=== PATIENT | male | born 1950 | race Caucasian/White ===

== ENCOUNTER 2016-06-22 08:41 | Outpatient (CLI) | payer MEDICARE, OTHER | END 2016-06-22 08:42 | disposition home or self-care (01) | DX: E78.5 Hyperlipidemia, unspecified (principal); R97.20 Elevated prostate specific antigen [PSA]; E11.9 Type 2 diabetes mellitus without complications; I10 Essential (primary) hypertension ==

== ENCOUNTER 2016-07-10 11:20 | Outpatient (CLI) | payer MEDICARE, OTHER | END 2016-07-10 11:21 | disposition home or self-care (01) | DX: R97.20 Elevated prostate specific antigen [PSA] (principal) ==

== ENCOUNTER 2016-08-08 10:49 | Day surgery (SDC) | payer MEDICARE, OTHER ==
[2016-08-08] MEDS ORDERED: LACTATED RINGERS 1,000 ML IV ONE ×2 (11:13→13:11)
[2016-08-08] MEDS ORDERED: fentaNYL 250 MCG/5 ML VIAL IVP ONE (13:00)
[2016-08-08] MEDS ORDERED: MIDAZOLAM 2 MG/2 ML VIAL IVP ONE (13:00)
== END 2016-08-08 10:50 | disposition home or self-care (01) ==
PROC: 0DJD8ZZ Inspection of Lower Intestinal Tract, Via Natural or Artificial Opening Endoscopic (ICD-10-PCS; principal; 2016-08-08 12:00)
DX: Z12.11 Encounter for screening for malignant neoplasm of colon (principal); K57.30 Diverticulosis of large intestine without perforation or abscess without bleeding; K64.8 Other hemorrhoids; Z86.010 Personal history of colon polyps; E11.9 Type 2 diabetes mellitus without complications; R12 Heartburn
CPT/HCPCS: G0105; J3010; J7120

== ENCOUNTER 2016-08-17 11:34 | Outpatient (CLI) | payer MEDICARE, OTHER | END 2016-08-17 11:35 | disposition home or self-care (01) | DX: Z00.00 Encounter for general adult medical examination without abnormal findings (principal) ==

== ENCOUNTER 2016-10-16 14:53 | Outpatient (CLI) | payer MEDICARE, OTHER | END 2016-10-16 14:54 | disposition home or self-care (01) | DX: I10 Essential (primary) hypertension (principal); E11.9 Type 2 diabetes mellitus without complications ==

== ENCOUNTER 2017-02-07 07:35 | Outpatient (CLI) | payer MEDICARE, OTHER ==
[2017-02-07 14:26] LABS: ALBUMIN/GLOBULIN RATIO 1.9 (1.0-2.2); BILIRUBIN,TOTAL 0.5 mg/dL (0.2-1.0); BUN - BLOOD UREA NITROGEN 24 mg/dL (6-20); CALCIUM 9.7 mg/dL (8.5-10.3); CARBON DIOXIDE - CO2 29 mmol/L (21-32); CHLORIDE 104 mmol/L (101-111); CHOL/HDL RATIO 2.9 (<5.0); CHOLESTEROL 197 mg/dL; CREATININE 0.8 mg/dL (0.6-1.2); GFR - MDRD 96 (>89); GLUCOSE 108 mg/dL (70-100); HDL CHOLESTEROL 69 mg/dL; POTASSIUM 4.4 mmol/L (3.5-5.0); SODIUM 138 mmol/L (135-145); TOTAL PROTEIN 6.6 g/dL (6.7-8.2); TRIGLYCERIDES 35 mg/dL
[2017-02-07 14:54] LABS: LDL CHOLESTEROL,DIRECT 119 mg/dL
[2017-02-07 14:58] LABS: HEMOGLOBIN A1C 0.52 g/dL
== END 2017-02-07 07:36 | disposition home or self-care (01) ==
LOC: LAB.WCP 07:35
PROVIDERS: ATTEND Family Medicine
DX: E78.5 Hyperlipidemia, unspecified (principal); E11.9 Type 2 diabetes mellitus without complications; I10 Essential (primary) hypertension
CPT/HCPCS: 36415; 80053; 80061; 83036

== ENCOUNTER 2017-05-25 07:11 | Outpatient (CLI) | payer MEDICARE, OTHER ==
[2017-05-25 13:46] LABS: HEMOGLOBIN A1C 0.51 g/dL
== END 2017-05-25 07:12 | disposition home or self-care (01) ==
LOC: LAB.WCP 07:11
PROVIDERS: ATTEND Family Medicine
DX: E11.9 Type 2 diabetes mellitus without complications (principal)
CPT/HCPCS: 36415; 83036

== ENCOUNTER 2017-05-31 08:00 | Outpatient (CLI) | payer MEDICARE, OTHER ==
[2017-05-31 15:24] LABS: BASOPHILS # (AUTO) 0.1 10^3/uL (0.0-0.1); BASOPHILS % (AUTO) 1.2 %; EOSINOPHILS # (AUTO) 0.2 10^3/uL (0.0-0.7); EOSINOPHILS % (AUTO) 3.4 %; HGB - HEMOGLOBIN 13.2 g/dL (14.0-18.0); LYMPHOCYTES # (AUTO) 1.4 10^3/uL (1.5-3.5); LYMPHOCYTES % (AUTO) 24.4 %; MEAN CORPUSCULAR HEMOGLOBIN 32.6 pg (27.0-31.0); MEAN CORPUSCULAR HGB CONC 33.7 g/dL (32.0-36.0); MEAN CORPUSCULAR VOLUME 96.8 fL (80.0-94.0); MEAN PLATELET VOLUME 8.1 fL (7.4-11.4); MONOCYTES # (AUTO) 0.5 10^3/uL (0.0-1.0); MONOCYTES % (AUTO) 9.9 %; NEUTROPHILS # (AUTO) 3.4 10^3/uL (1.5-6.6); NEUTROPHILS % (AUTO) 61.1 %; PLT - PLATELET COUNT 217 10^3/uL (130-450); RED BLOOD COUNT 4.04 10^6/uL (4.70-6.10); RED CELL DISTRIBUTION WIDTH 12.9 % (12.0-15.0); WHITE BLOOD COUNT 5.6 x10^3/uL (4.8-10.8)
[2017-05-31 15:29] LABS: ALBUMIN 4.5 g/dL (3.2-5.5); ALBUMIN/GLOBULIN RATIO 1.7 (1.0-2.2); BILIRUBIN,TOTAL 0.5 mg/dL (0.2-1.0); CREATININE 0.7 mg/dL (0.6-1.2); TOTAL PROTEIN 7.2 g/dL (6.7-8.2)
== END 2017-05-31 08:01 | disposition home or self-care (01) ==
LOC: LAB.WCP 08:00
PROVIDERS: ATTEND Family Medicine
DX: R10.9 Unspecified abdominal pain (principal)
CPT/HCPCS: 36415; 80053; 82150; 83690; 85025

== ENCOUNTER 2017-06-06 08:29 | Outpatient (CLI) | payer MEDICARE, OTHER ==
--- NOTE | 2017-06-07 11:22 | Ultrasound Report ---
DATE OF SERVICE: 06/06/2017 LIMITED RIGHT UPPER QUADRANT ABDOMEN ULTRASOUND: 06/06/2017 COMPARISON: None. INDICATION: Abdominal pain. TECHNIQUE: Sonographic evaluation of the right upper quadrant was performed. FINDINGS: The liver appears normal in size, contour and echogenicity. No masses are seen. There is no ascites. Portal venous flow was directed toward the liver. The gallbladder appears unremarkable without stones, wall thickening, or adjacent fluid. The common duct is nondilated measuring 4 mm. The right kidney measures 11.1 cm in length. There is a prominent column of Tay. The kidney appears otherwise unremarkable. IMPRESSION: ESSENTIALLY NEGATIVE RIGHT UPPER QUADRANT ULTRASOUND. TD: 06/06/2017 10:33 BETHANY
== END 2017-06-06 08:30 | disposition home or self-care (01) ==
LOC: DI 08:29
PROVIDERS: ATTEND Family Medicine
DX: R10.9 Unspecified abdominal pain (principal)
CPT/HCPCS: 76705

== ENCOUNTER 2017-06-18 12:04 | Outpatient (CLI) | payer MEDICARE, OTHER ==
[2017-06-18] MEDS ORDERED: SINCALIDE 5 MCG VIAL ONE (13:13)
--- NOTE | 2017-06-18 17:17 | Nuclear Medicine Report ---
EXAM: HEPATOBILIARY SCAN WITH CCK/KINEVAC ADMINISTRATION EXAM DATE: 06/18/2017 02:54 PM. CLINICAL HISTORY: ABDOMINAL PAIN. COMPARISON: Abdominal ultrasound 06/06/2017. TECHNIQUE: Following the intravenous administration of 5.3 mCi of Tc99m Mebrofenin, a hepatobiliary s can was done centered on the liver and gallbladder in multiple sequential images and projections. Following the intravenous administration of 1.55 mcg of CCK/ Kinevac over the course of approximately 60 minutes, dynamic imaging was done and the gallbladder ejection fraction was calculated. FINDINGS: Normal extraction of tracer from the blood pool indicating normal hepatocellular function. The liver size and shape is grossly within normal limits. Appearance of tracer in the biliary tree as early as 5 minutes, within normal limits. Appearance of tracer in the gallbladder as early as 20 minutes, within normal limits, with good progr ession of filling throughout the remainder of the initial hour. Appearance of tracer in the small bowel as early as 5 minutes, within normal limits. With CCK administration, the gallbladder demonstrates an effective contraction. The gallbladder eject ion fraction is calculated to be 79%, well above the lower limit of normal of 38% for a 60-minute inj ection. No evidence of enteric reflux into the stomach. No significant collection of tracer remaining in the common bile duct by the end of the study. IMPRESSION: 1. No scintigraphic evidence of acute cholecystitis. 2. Common bile duct is patent. 3. Gallbladder ejection fraction is in the normal range. VERONICA Referring Provider Line: [phone] SITE ID: [id number]
== END 2017-06-18 12:05 | disposition home or self-care (01) ==
LOC: DI 12:04
PROVIDERS: ATTEND Family Medicine
DX: R10.9 Unspecified abdominal pain (principal)
CPT/HCPCS: 78227; A9537

== ENCOUNTER 2017-06-20 09:00 | Outpatient (CLI) | payer MEDICARE, OTHER ==
[2017-06-20 13:07] LABS: AMYLASE 65 U/L (28-100); LIPASE 25 U/L (22-51)
== END 2017-06-20 09:01 | disposition home or self-care (01) ==
LOC: LAB.WCP 09:00
PROVIDERS: ATTEND Family Medicine
DX: R10.9 Unspecified abdominal pain (principal)
CPT/HCPCS: 36415; 82150; 83690

== ENCOUNTER 2017-07-12 07:58 | Outpatient (CLI) | payer MEDICARE ==
[2017-07-12 13:51] LABS: PSA FREE 1.21 ng/mL (0.16-2.81)
[2017-07-12 13:52] LABS: PSA TOTAL 3.09 ng/mL (0.000-2.000)
== END 2017-07-12 07:59 | disposition home or self-care (01) ==
LOC: LAB.WCP 07:58
PROVIDERS: ATTEND Family Medicine
DX: Z12.5 Encounter for screening for malignant neoplasm of prostate (principal)
CPT/HCPCS: 36415; 84154

== ENCOUNTER 2017-11-01 08:00 | Outpatient (CLI) | payer MEDICARE, OTHER ==
[2017-11-01 12:55] LABS: ALBUMIN 4.4 g/dL (3.2-5.5); ALBUMIN/GLOBULIN RATIO 1.6 (1.0-2.2); BILIRUBIN,TOTAL 0.8 mg/dL (0.2-1.0); CALCIUM 9.7 mg/dL (8.5-10.3); CREATININE 0.9 mg/dL (0.6-1.2); TOTAL PROTEIN 7.2 g/dL (6.7-8.2)
[2017-11-01 13:05] LABS: HB2 TOTAL 14.9 g/dL; HEMOGLOBIN A1C 0.57 g/dL; HEMOGLOBIN A1C % 5.7 % (4.6-6.2)
== END 2017-11-01 08:01 ==
LOC: LAB.WCP 08:00
PROVIDERS: ATTEND Family Medicine
DX: E11.9 Type 2 diabetes mellitus without complications (principal); I10 Essential (primary) hypertension
CPT/HCPCS: 36415; 80053; 83036

== ENCOUNTER 2018-01-09 08:00 | Outpatient (CLI) | payer MEDICARE, OTHER ==
[2018-01-09 13:36] LABS: BASOPHILS # (AUTO) 0.1 10^3/uL (0.0-0.1); BASOPHILS % (AUTO) 1.3 %; EOSINOPHILS # (AUTO) 0.3 10^3/uL (0.0-0.7); EOSINOPHILS % (AUTO) 6.1 %; HGB - HEMOGLOBIN 13.1 g/dL (14.0-18.0); LYMPHOCYTES # (AUTO) 1.1 10^3/uL (1.5-3.5); LYMPHOCYTES % (AUTO) 26.4 %; MEAN CORPUSCULAR HEMOGLOBIN 33.6 pg (27.0-31.0); MEAN CORPUSCULAR HGB CONC 35.1 g/dL (32.0-36.0); MEAN CORPUSCULAR VOLUME 95.8 fL (80.0-94.0); MEAN PLATELET VOLUME 7.7 fL (7.4-11.4); MONOCYTES # (AUTO) 0.4 10^3/uL (0.0-1.0); MONOCYTES % (AUTO) 9.4 %; NEUTROPHILS # (AUTO) 2.4 10^3/uL (1.5-6.6); NEUTROPHILS % (AUTO) 56.8 %; PLT - PLATELET COUNT 214 10^3/uL (130-450); RED BLOOD COUNT 3.89 10^6/uL (4.70-6.10); RED CELL DISTRIBUTION WIDTH 12.4 % (12.0-15.0); WHITE BLOOD COUNT 4.3 x10^3/uL (4.8-10.8)
[2018-01-09 13:50] LABS: ALBUMIN 4.2 g/dL (3.2-5.5); ALBUMIN/GLOBULIN RATIO 1.7 (1.0-2.2); ALKALINE PHOSPHATASE 63 IU/L (42-121); ALT ALANINE AMINOTRANSFERASE 28 IU/L (10-60); AST ASPARTATE AMINOTRANSFERASE 30 IU/L (10-42); BILIRUBIN,TOTAL 0.7 mg/dL (0.2-1.0); BUN - BLOOD UREA NITROGEN 14 mg/dL (6-20); CALCIUM 9.8 mg/dL (8.5-10.3); CARBON DIOXIDE - CO2 30 mmol/L (21-32); CHLORIDE 99 mmol/L (101-111); CREATININE 0.8 mg/dL (0.6-1.2); GFR - MDRD 96 (>89); GLUCOSE 110 mg/dL (70-100); SODIUM 136 mmol/L (135-145); TOTAL PROTEIN 6.7 g/dL (6.7-8.2)
[2018-01-09 14:07] LABS: CRP - C-REACTIVE PROTEIN < 1.0 mg/dL (0-1.0)
== END 2018-01-09 08:01 | disposition home or self-care (01) ==
LOC: LAB.WCP 08:00
PROVIDERS: ATTEND Family Medicine
DX: L25.9 Unspecified contact dermatitis, unspecified cause (principal); I10 Essential (primary) hypertension
CPT/HCPCS: 36415; 80053; 85025; 85651; 86140

== ENCOUNTER 2018-01-31 08:21 | Outpatient (CLI) | payer MEDICARE, OTHER ==
[2018-01-31 13:27] LABS: BASOPHILS # (AUTO) 0.1 10^3/uL (0.0-0.1); BASOPHILS % (AUTO) 0.9 %; EOSINOPHILS # (AUTO) 0.2 10^3/uL (0.0-0.7); EOSINOPHILS % (AUTO) 3.5 %; HGB - HEMOGLOBIN 13.5 g/dL (14.0-18.0); LYMPHOCYTES # (AUTO) 1.3 10^3/uL (1.5-3.5); LYMPHOCYTES % (AUTO) 22.7 %; MEAN CORPUSCULAR HEMOGLOBIN 33.4 pg (27.0-31.0); MEAN CORPUSCULAR HGB CONC 34.3 g/dL (32.0-36.0); MEAN CORPUSCULAR VOLUME 97.3 fL (80.0-94.0); MEAN PLATELET VOLUME 8.4 fL (7.4-11.4); MEAN RETIC VALUE 122.8; MONOCYTES # (AUTO) 0.4 10^3/uL (0.0-1.0); MONOCYTES % (AUTO) 7.8 %; NEUTROPHILS # (AUTO) 3.6 10^3/uL (1.5-6.6); NEUTROPHILS % (AUTO) 65.1 %; PLT - PLATELET COUNT 211 10^3/uL (130-450); RED BLOOD COUNT 4.06 10^6/uL (4.70-6.10); RED CELL DISTRIBUTION WIDTH 12.6 % (12.0-15.0); WHITE BLOOD COUNT 5.5 x10^3/uL (4.8-10.8)
[2018-01-31 14:06] LABS: FERRITIN 48.6 ng/mL (23.9-336.2)
[2018-01-31 14:10] LABS: FOLATE 11.99 ng/mL (5.90 - >24.8)
[2018-01-31 14:28] LABS: % IRON SATURATION 28 % (20-50); IRON 104 ug/dL (45-182); TOTAL IRON BINDING CAPACITY 368 ug/dL (250-450); TRANSFERRIN 263 mg/dL (180-329)
== END 2018-01-31 08:22 ==
LOC: LAB.WCP 08:21
PROVIDERS: ATTEND Family Medicine
DX: D64.9 Anemia, unspecified (principal)
CPT/HCPCS: 36415; 82607; 82728; 82746; 83540; 84466; 85025; 85044

== ENCOUNTER 2019-11-12 10:33 | Outpatient (CLI) | payer MEDICARE ==
--- NOTE | 2019-11-12 14:58 | CARDIAC PROCEDURE NOTE ---
DATE OF SERVICE: 11/12/2019 Physician: Rachel Eddy MD, [facility] INDICATION: Atypical chest pain. CARDIAC RISK FACTORS 1. Male gender. 2. Advanced age. 3. Hypertension history, 4. Elevated cholesterol history. 5. Family history of heart disease. DESCRIPTION OF PROCEDURE: After signing informed consent, patient underwent a Jose-protocol treadmill stress test. No cardiac imaging was ordered with this test. RESTING HEART RATE: 71. PEAK HEART RATE: 136 (90% predicted maximum heart rate for age). RESTING BLOOD PRESSURE: 136/82. PEAK BLOOD PRESSURE: 158/60. Patient exercised for 4 minutes and 40 seconds on a Jose-protocol treadmill. He achieved a peak heart rate of 136 (90% PMHR) and 6.6 METS. Patient had mild shortness of breath and reported his perceived exertion at 15/20 at peak on the Sanchez scale at peak. Patient had no chest pain with exercise. Oxygen saturation was 92-98% on room air throughout the test. RESTING EKG: Normal sinus rhythm, left IVCD, left anterior fascicular block, early R/S transition, flat/biphasic T-wave in lead aVL only. EKG AT PEAK: No ST segment or T-wave changes. SUMMARY 1. Abnormal resting EKG. 2. Fair to good exercise tolerance. 3. No changes by EKG criteria occur during his exercise at an adequate level of stress achieved. 4. No imaging was ordered with this test. 5. This patient's cardiac risk based on all the above: Low-Moderate. cc:Baltazar Juarez DO TD: 11/12/2019 14:15 [facility]
== END 2019-11-12 10:34 | disposition home or self-care (01) ==
LOC: DI 10:33
PROVIDERS: ATTEND Family Medicine
DX: R94.31 Abnormal electrocardiogram [ECG] [EKG] (principal); I10 Essential (primary) hypertension; Z82.49 Family history of ischemic heart disease and other diseases of the circulatory system
CPT/HCPCS: 93017

== ENCOUNTER 2021-11-11 09:41 | Outpatient (CLI) | payer MEDICARE ==
--- NOTE | 2021-11-11 11:28 | XRAY Report ---
PROCEDURE: Shoulder 3 View LT INDICATIONS: PAIN IN LEFT SHOULDER TECHNIQUE: 3 views of the shoulder were acquired. COMPARISON: None. FINDINGS: Bones: No fractures or dislocations. Moderate acromioclavicular joint and glenohumeral joint osteoar thritic changes are seen. No suspicious bony lesions. Visualized ribs appear intact. Soft tissues: No suspicious soft tissue calcifications. IMPRESSION: Moderate left shoulder joint osteoarthritis. No fracture or dislocation. No gross soft t issue abnormality. Reviewed by: Vikas Dawson MD on 11/11/2021 11:27 AM PDT Approved by: Vikas Dawson MD on 11/11/2021 11:27 AM PDT Station ID: [id number]
--- NOTE | 2021-11-11 11:57 | XRAY Report ---
PROCEDURE: Cervical Spine Complete INDICATIONS: PAIN IN LEFT SHOULDER TECHNIQUE: 6 views of the cervical spine acquired. COMPARISON: None. FINDINGS: Bones: No fractures or dislocations to the T1 level. Oblique images demonstrate no significant bony foraminal stenoses. Moderate C6-7 C7 degenerative disc disease. Mild C2-C3, C3-C4, C4-C5, C5-C6 and C7-T1 degenerative disc disease. Mild facet hypertrophy noted throughout the cervical spine. Mild jeanine ateral CC 3-C4, C4-C5 and C5-C6 uncovertebral hypertrophy. Soft tissues: No prevertebral soft tissue swelling. IMPRESSION: 1. Multilevel degenerative disc disease. 2. Multilevel facet and uncovertebral arthropathy. 3. No fracture. No acute osseous lesion. If there is continued clinical concern for pathology, then M RI should be considered for further evaluation.. Reviewed by: Magaly Morales MD, PhD on 11/11/2021 11:55 AM PDT Approved by: Magaly Morales MD, PhD on 11/11/2021 11:55 AM PDT Station ID: [id number]
== END 2021-11-11 09:42 | disposition home or self-care (01) ==
LOC: DI.N 09:41
PROVIDERS: ATTEND Family Medicine
DX: M47.812 Spondylosis without myelopathy or radiculopathy, cervical region (principal); M50.31 Other cervical disc degeneration, high cervical region; M19.012 Primary osteoarthritis, left shoulder

== ENCOUNTER 2022-08-16 19:06 | Outpatient (CLI) | payer MEDICARE ==
--- NOTE | 2022-08-17 10:16 | XRAY Report ---
PROCEDURE: Abdomen Acute INDICATIONS: UNSPECIFIED ABDOMINAL PAIN TECHNIQUE: One view chest and two views of the abdomen were acquired. COMPARISON: None FINDINGS: Surgical changes and devices: None. Chest: Lungs are clear. Heart size is normal. No pleural effusions. No pneumoperitoneum. Abdomen: Bowel gas pattern is normal. No suspicious calcifications. Visualized solid organ contour s appear normal. Bones: No suspicious bony lesions. Convex right scoliosis of the lumbar spine. IMPRESSION: No acute abnormality. Reviewed by: Yony Nelson on 08/17/2022 10:15 AM PDT Approved by: Yony Nelson on 08/17/2022 10:15 AM PDT Station ID: [id number]
--- NOTE | 2022-08-17 10:21 | XRAY Report ---
PROCEDURE: Thoracic Spine 2 View INDICATIONS: UNSPECIFIED ABDOMINAL PAIN, THORACIC MUSCLE SPASM TECHNIQUE: 3 views of the thoracic spine were acquired. COMPARISON: None. FINDINGS: Bones: No fractures or dislocations. No suspicious bony lesions. 12 pairs of ribs are noted, and a ppear intact where visualized. Soft tissues: No paravertebral stripe thickening. IMPRESSION: No evidence of acute bony abnormality of the thoracic spine. Reviewed by: Guru Kenney MD on 08/17/2022 10:20 AM PDT Approved by: Guru Kenney MD on 08/17/2022 10:20 AM PDT Station ID: [id number]
== END 2022-08-16 19:07 | disposition home or self-care (01) ==
LOC: DI 19:06
PROVIDERS: ATTEND Family Medicine
DX: R10.9 Unspecified abdominal pain (principal); M62.830 Muscle spasm of back

== ENCOUNTER 2022-10-02 12:30 | Outpatient (CLI) | payer MEDICARE | END 2022-10-02 12:45 | disposition home or self-care (01) | LOC: LAB.N 12:30 | PROVIDERS: ATTEND Physician Assistant Medical | DX: Z53.9 Procedure and treatment not carried out, unspecified reason (principal) | CPT/HCPCS: 36415; 80053; 83880; 85025 ==

== ENCOUNTER 2022-10-02 13:54 | Emergency (ER) | payer MEDICARE ==
--- NOTE | 2022-10-02 14:31 | ED Physician Documentation ---
History of Present Illness - Stated complaint Stated Complaint: SENT BY PCP - Chief complaint Chief Complaint: General - History obtained from History obtained from: Patient, Family - History of Present Illness Pain level max: 0 Pain level now: 0 - Additonal information Additional information: 72-year-old male presents to the emergency department complaining of pain and swelling to the bilateral buttocks x2 weeks. He states that this started after doing sitz bath for a hemorrhoid. He states he has also noticed swelling to his scrotum and penis that started over the past 1.5 days. He went to the walk-in clinic and was sent here for evaluation. He denies any chest pain or shortness of breath to me. No fevers. No chills. No coughing. Does not have any history of heart failure. Review of Systems Constitutional: denies: Fever, Chills GI: denies: Nausea, Vomiting : denies: Dysuria, Frequency, Hesitancy Skin: denies: Rash Musculoskeletal: denies: Neck pain, Back pain Neurologic: denies: Headache PD PAST MEDICAL HISTORY - Past Medical History Cardiovascular: Hypertension, High cholesterol Respiratory: Asthma Endocrine/Autoimmune: Type 2 diabetes GI: GERD : Benign prostate hypertrophy Psych: None Musculoskeletal: None Derm: None - Past Surgical History General: Colonoscopy, EGD - Present Medications Home Medications: Ambulatory Orders Medication Instructions Recorded Confirmed Albuterol Sulf [Ventolin Hfa 1 puffs INH Q4HR PRN 08/08/16 08/08/16 Inhaler] Ascorbic Acid [Vitamin C] 1,000 mg PO BID 08/08/16 08/08/16 Aspirin 81 mg PO DAILY 08/08/16 08/08/16 Calcium Carbonate [Calcium] 500 mg PO DAILY 08/08/16 08/08/16 Cholecalciferol (Vitamin D3) 2,000 unit PO DAILY 08/08/16 08/08/16 [Vitamin D] Cinnamon Bark [Cinnamon] 2 tab PO BID 08/08/16 08/08/16 Fluticasone [Flonase] 1 sprays MISHEL DAILY 08/08/16 08/08/16 Niacin 500 mg PO DAILY 08/08/16 08/08/16 Omeprazole [PriLOSEC] 20 mg PO DAILY 08/08/16 08/08/16 Simvastatin 20 mg PO DAILY 08/08/16 08/08/16 Tamsulosin [Flomax] 0.4 mg PO DAILY 08/08/16 08/08/16 Ubidecarenone [Co Q-10] 100 mg PO DAILY 08/08/16 10/02/22 lisinopriL [Prinivil] 10 mg PO DAILY 08/08/16 08/08/16 tiZANidine [Zanaflex] 4 mg PO Q8H PRN 08/08/16 08/08/16 Sulfamethox/Trimeth 800/160 1 each PO BID #14 tablet 10/02/22 [Bactrim Ds 800/160] cephALEXin [Keflex] 500 mg PO Q6H #28 cap 10/02/22 - Allergies Allergies/Adverse Reactions: Allergies Allergy/AdvReac Type Severity Reaction Status Date / Time latex Allergy Rash Verified 10/02/22 14:09 Tetanus Vaccines and Toxoid Allergy Rash Verified 10/02/22 14:09 PD ED PE NORMAL - Vitals Vital signs reviewed: Yes - General General: Alert and oriented X 3, No acute distress - HEENT HEENT: PERRL, Moist mucous membranes - Neck Neck: Supple, no meningeal sign - Cardiac Cardiac: RRR, Strong equal pulses - Respiratory Respiratory: No respiratory distress, Clear bilaterally - Abdomen Abdomen: Soft, Non tender, Non distended - Derm Derm: Warm and dry - Extremities Extremities: No edema, No calf tenderness / cord, Other (Erythema, induration to the bilateral buttocks. No fluctuance. No crepitus. No significant scrotal swelling, but there is a small amount of swelling around the glans of the penis) - Neuro Neuro: Alert and oriented X 3 - Psych Psych: Normal mood, Normal affect Results - Vitals Vitals: Vital Signs - 24 hr 10/02/22 10/02/22 10/02/22 14:01 14:54 15:50 Temperature Heart Rate 101 H 88 76 Respiratory 16 18 16 Rate Blood Pressure 116/92 H 95/66 97/61 O2 Saturation 100 99 100 10/02/22 10/02/22 15:51 16:24 Temperature 36.8 C 36.5 C Heart Rate 74 Respiratory 74 H Rate Blood Pressure 106/63 O2 Saturation 99 Oxygen O2 Source Room air - EKG (time done) 1441 EKG releavant findings:: EKG personally interpreted by author of this note. Relevant findings are: Rate: Rate (enter#) (94) Rhythm: NSR Dermott: Anterior hemiblock (LAFB) Intervals: Normal DC QRS: LVH Ischemia: Normal ST segments - Labs Labs: Laboratory Tests 10/02/22 10/02/22 10/02/22 14:54 14:54 14:54 WBC 10.7 RBC 4.28 L Hgb 13.8 L Hct 41.2 L MCV 96.3 H MCH 32.2 H MCHC 33.5 RDW 12.0 Plt Count 238 MPV 9.5 Neut # (Auto) 9.1 H Lymph # (Auto) 0.8 L Terrell # (Auto) 0.6 Eos # (Auto) 0.1 Baso # (Auto) 0.1 Absolute Nucleated RBC 0.00 Nucleated RBC % 0.0 Sodium 134 L Potassium 4.3 Chloride 97 L Carbon Dioxide 28 Anion Gap 9.0 BUN 17 Creatinine 0.9 Estimated GFR (MDRD) 83 L Glucose 135 H Calcium 9.8 Total Bilirubin 0.6 AST 21 ALT 22 Alkaline Phosphatase 74 Troponin I High Sens 3.4 B-Natriuretic Peptide Total Protein 7.1 Albumin 4.2 Globulin 2.9 Albumin/Globulin Ratio 1.4 Lipase 31 10/02/22 14:54 WBC RBC Hgb Hct MCV MCH MCHC RDW Plt Count MPV Neut # (Auto) Lymph # (Auto) Terrell # (Auto) Eos # (Auto) Baso # (Auto) Absolute Nucleated RBC Nucleated RBC % Sodium Potassium Chloride Carbon Dioxide Anion Gap BUN Creatinine Estimated GFR (MDRD) Glucose Calcium Total Bilirubin AST ALT Alkaline Phosphatase Troponin I High Sens B-Natriuretic Peptide 11 Total Protein Albumin Globulin Albumin/Globulin Ratio Lipase - Rads (name of study) cxr Relevant Findings:: Final report received, See rad report PD Medical Decision Making - ED course Complexity details: reviewed results, re-evaluated patient, considered diff erential, d/w patient ED course: Patient with what appears to be bilateral buttock cellulitis, no evidence of abscess. No scrotal tenderness. Mild swelling to the distal penile shaft. Suspect likely infectious. We will place on antibiotics. Chest x-ray does not show any pulmonary edema. No history of heart failure. BNP is normal. We will have the patient reassessed with his doctor to ensure the swelling has decreased. Patient will be placed on Keflex and Bactrim for home. He will start this today. Patient and family counseled regarding signs and symptoms for which I believe and urgent re-evaluation would be necessary. Patient with good understanding of and agreement to plan and is comfortable going home at this time This document was made in part using voice recognition software. While efforts are made to proofread this document, sound alike and grammatical errors may occur. Recommend Motrin and Tylenol as needed for pain. No evidence of gangrene, no evidence of necrotizing fasciitis. Symptoms ongoing for 2 weeks. Departure - Departure Disposition: Home, Self Care Clinical Impression: Cellulitis Qualifiers: Site of cellulitis: unspecified site Qualified Code(s): L03.90 - Cellulitis, unspecified Condition: Good Instructions: ED Infec Skin Cellulitis Follow-Up: Jorge Coronel DO [Primary Care Provider] - Within 1 week Prescriptions: Sulfamethox/Trimeth 800/160 [Bactrim Ds 800/160] 1 each PO BID #14 tablet cephALEXin [Keflex] 500 mg PO Q6H #28 cap Comments: We will start you on antibiotics for the infection. Please follow-up with your doctor in about 3 to 4 days for a wound check. Please return if you worsen. Your blood work and x-ray do not show any acute abnormalities today. There is no evidence of heart failure. You can use Motrin or Tylenol for pain. Your prescriptions were sent to [facility] in [place]. Discharge Date/Time: 10/02/22 16:24
--- NOTE | 2022-10-02 14:44 | XRAY Report ---
PROCEDURE: Chest 1 View X-Ray INDICATIONS: Chest Pain TECHNIQUE: One view of the chest was acquired. COMPARISON: None. FINDINGS: Surgical changes and devices: None. Lungs and pleura: No pleural effusions or pneumothorax. Lungs are clear. Mediastinum: Mediastinal contours appear normal. Heart size is normal. Bones and chest wall: No suspicious bony lesions. Overlying soft tissues appear unremarkable. IMPRESSION: No acute cardiopulmonary disease. Reviewed by: Randall Chan MD on 10/02/2022 2:43 PM PDT Approved by: Randall Chan MD on 10/02/2022 2:43 PM PDT Station ID: [id number]
[2022-10-02 15:04] LABS: BASOPHILS # (AUTO) 0.1 10^3/uL (0.0-0.1); BASOPHILS % (AUTO) 0.6 %; EOSINOPHILS # (AUTO) 0.1 10^3/uL (0.0-0.7); EOSINOPHILS % (AUTO) 0.9 %; HCT - HEMATOCRIT 41.2 % (42.0-52.0); HGB - HEMOGLOBIN 13.8 g/dL (14.0-18.0); LYMPHOCYTES # (AUTO) 0.8 10^3/uL (1.5-3.5); LYMPHOCYTES % (AUTO) 7.4 %; MEAN CORPUSCULAR HEMOGLOBIN 32.2 pg (27.0-31.0); MEAN CORPUSCULAR HGB CONC 33.5 g/dL (32.0-36.0); MEAN CORPUSCULAR VOLUME 96.3 fL (80.0-94.0); MEAN PLATELET VOLUME 9.5 fL (7.4-11.4); MONOCYTES # (AUTO) 0.6 10^3/uL (0.0-1.0); MONOCYTES % (AUTO) 5.6 %; NEUTROPHILS # (AUTO) 9.1 10^3/uL (1.5-6.6); NEUTROPHILS % (AUTO) 85.2 %; PLT - PLATELET COUNT 238 10^3/uL (130-450); RED BLOOD COUNT 4.28 10^6/uL (4.70-6.10); WHITE BLOOD COUNT 10.7 x10^3/uL (4.8-10.8)
[2022-10-02 15:16] LABS: ALBUMIN 4.2 g/dL (3.2-5.5); ALBUMIN/GLOBULIN RATIO 1.4 (1.0-2.2); BILIRUBIN,TOTAL 0.6 mg/dL (0.2-1.0); CALCIUM 9.8 mg/dL (8.5-10.3); CREATININE 0.9 mg/dL (0.6-1.2); POTASSIUM 4.3 mmol/L (3.5-5.0); TOTAL PROTEIN 7.1 g/dL (6.7-8.2)
[2022-10-02 16:26] VITALS: BP 106/63
== END 2022-10-02 16:24 | disposition home or self-care (01) ==
LOC: ED 13:54
DX: L03.317 Cellulitis of buttock (principal)
CPT/HCPCS: 36415; 80053; 83690; 83880; 84484; 85025; 93005; 99284

== ENCOUNTER 2022-10-05 19:37 | Emergency (ER) | payer MEDICARE ==
[2022-10-05] MEDS ORDERED: hydrOXYzine PAMOATE 25 MG CAPSULE PO STA (20:46)
--- NOTE | 2022-10-05 20:49 | ED Physician Documentation ---
History of Present Illness - Stated complaint Stated Complaint: RASH - Chief complaint Chief Complaint: General - Additonal information Additional information: 72-year-old male presents emergency department for evaluation of a rash on his arms and torso. It began yesterday. This patient was seen in this emergency department on 02 October. He had developed Cellulitis in his scrotal, genital area and buttocks after sitting in a hot bath. My colleague placed him on both Keflex and Bactrim. He has no fevers. He reports that initially the antibiotics were making the swelling and pain in his genital area better but today with the development of the rash he feels there is bed no further progress with the cellulitis. No history of previous antibiotic allergy or known family history of sulfa allergy Review of Systems Constitutional: denies: Fever Skin: reports: Rash, Lesions PD PAST MEDICAL HISTORY - Past Medical History Cardiovascular: Hypertension, High cholesterol Respiratory: Asthma Endocrine/Autoimmune: Type 2 diabetes GI: GERD : Benign prostate hypertrophy Psych: None Musculoskeletal: None Derm: None - Past Surgical History Past Surgical History: Yes General: Colonoscopy, EGD - Present Medications Home Medications: Ambulatory Orders Medication Instructions Recorded Confirmed Albuterol Sulf [Ventolin Hfa 1 puffs INH Q4HR PRN 08/08/16 08/08/16 Inhaler] Ascorbic Acid [Vitamin C] 1,000 mg PO BID 08/08/16 08/08/16 Aspirin 81 mg PO DAILY 08/08/16 08/08/16 Calcium Carbonate [Calcium] 500 mg PO DAILY 08/08/16 08/08/16 Cholecalciferol (Vitamin D3) 2,000 unit PO DAILY 08/08/16 08/08/16 [Vitamin D] Cinnamon Bark [Cinnamon] 2 tab PO BID 08/08/16 08/08/16 Fluticasone [Flonase] 1 sprays MISHEL DAILY 08/08/16 08/08/16 Niacin 500 mg PO DAILY 08/08/16 08/08/16 Omeprazole [PriLOSEC] 20 mg PO DAILY 08/08/16 08/08/16 Simvastatin 20 mg PO DAILY 08/08/16 08/08/16 Tamsulosin [Flomax] 0.4 mg PO DAILY 08/08/16 08/08/16 Ubidecarenone [Co Q-10] 100 mg PO DAILY 08/08/16 10/02/22 lisinopriL [Prinivil] 10 mg PO DAILY 08/08/16 08/08/16 tiZANidine [Zanaflex] 4 mg PO Q8H PRN 08/08/16 08/08/16 Sulfamethox/Trimeth 800/160 1 each PO BID #14 tablet 10/02/22 10/05/22 [Bactrim Ds 800/160] cephALEXin [Keflex] 500 mg PO Q6H #28 cap 10/02/22 10/05/22 Doxycycline Hyclate 100 mg PO BID #14 cap 10/05/22 hydrOXYzine PAMOATE [Vistaril] 25 mg PO Q6H PRN #20 cap 10/05/22 - Allergies Allergies/Adverse Reactions: Allergies Allergy/AdvReac Type Severity Reaction Status Date / Time latex Allergy Rash Verified 10/05/22 19:47 Tetanus Vaccines and Toxoid Allergy Rash Verified 10/05/22 19:47 - Social History Does the pt smoke?: No Smoking Status: Never smoker PD ED PE NORMAL - General General: Alert and oriented X 3, No acute distress, Well developed/nourished - HEENT HEENT: Atraumatic, Moist mucous membranes (No intraoral lesions noted.) - Neck Neck: Supple, no meningeal sign - Cardiac Cardiac: RRR, No murmur - Respiratory Respiratory: No respiratory distress, Clear bilaterally - Abdomen Abdomen: Normal bowel sounds, Soft, Non tender - Derm Derm: Other (Noted bilateral buttock and scrotal cellulitis that is beefy red in appearance secondary to a scald burn.). No: No rash (Maculopapular rash on the torso and bilateral arms. Negative Nikolsky's. Nonvesicular. No petechiae) - Extremities Extremities: No deformity - Neuro Neuro: Alert and oriented X 3, netbackup engineer 2-12 intact Eye Opening: Spontaneous Motor: Obeys Commands Verbal: Oriented GCS Score: 15 Results - Vitals Vitals: Vital Signs - 24 hr 10/05/22 10/05/22 19:39 20:07 Temperature 36.6 C Heart Rate 92 97 Respiratory 16 18 Rate Blood Pressure 127/69 O2 Saturation 98 99 Oxygen O2 Source Room air PD Medical Decision Making - ED course Complexity details: d/w patient, d/w family ED course: 72-year-old male presents emergency department for evaluation of a rash on his torso and bilateral arms that began yesterday. He was recently prescribed both Keflex and Bactrim for scald burn cellulitis in his genital area. The appearance of the rash is consistent with an allergic drug reaction. I am highly suspicious that it is due to the sulfa antibiotic. I discussed this with the patient and his visitor at the bedside. The patient is quite concerned that since we do not know exactly which antibiotic it was he may be better to have a new antibiotic prescribed. As such and to alleviate his fears I am advising him to discontinue the Bactrim and Keflex and we will start him on doxycycline. Bactrim has been added to his drug profile for allergies. I did prescribe some Atarax for the intensity of the itch. He was given the first dose here in the ER. I discussed with patient that given the beefy red appearance of his cellulitis and the scrotal sibley that would likely take a few weeks to resolve. He was encouraged to use antibiotic ointment such as bacitracin or Neosporin to the wounds though he feels that only makes the burning sensation worse so he has declined to do that. At this time however he is clinically stable without fever and has normal vital signs therefore he is discharged home in stable condition Departure - Departure Disposition: 01 Home, Self Care Clinical Impression: Allergic reaction caused by a drug Qualifiers: Encounter type: initial encounter Qualified Code(s): T78.40XA - Allergy, unspecified, initial encounter Condition: Stable Record reviewed to determine appropriate education?: Yes Prescriptions: Doxycycline Hyclate 100 mg PO BID #14 cap hydrOXYzine PAMOATE [Vistaril] 25 mg PO Q6H PRN #20 cap PRN Reason: Itching Comments: Jose she came to the emergency department today because you have developed a rash on your arms, back and abdomen/chest. The appearance of your rash is most consistent with an allergic drug reaction to the Bactrim or the sulfa antibiotic you were prescribed. We have placed this as an allergy in your chart. You should not take sulfa medications again. I think it is extremely unlikely that this is due to the cephalexin. However you do express some discomfort without knowing for certain which drug you are allergic to. In this case then it is appropriate to consider a complete antibiotic change. As such I have sent a prescription for doxycycline to the [facility] in [place]. You will take this twice daily for the next week. Well on doxycycline you should avoid exposure to the sun as it can cause a rash to develop. Your rash is very itchy and I have sent a prescription for Vistaril also known as Atarax to the [facility]. You can take this 4 times a day for itch. Soothing hydrocortisone lotions may also be helpful. However I would expect that as the rash gets better, likely over the next 48 to 72 hours, the itching should improve. The cellulitis on your buttock and scrotum is not resolved yet. You have not had enough time of antibiotic therapy for it to have improved. If you find that despite taking the new antibiotic you are having worsening swelling in your scrotal area, worsening redness outside your burn area then please return to the ER for repeat evaluation.
[2022-10-05 21:00] VITALS: BP 104/66
== END 2022-10-05 21:00 | disposition home or self-care (01) ==
LOC: ED 19:37
DX: L27.0 Generalized skin eruption due to drugs and medicaments taken internally (principal); T37.0X5A Adverse effect of sulfonamides, initial encounter; N49.2 Inflammatory disorders of scrotum; L03.317 Cellulitis of buttock
CPT/HCPCS: 99282; 99283; A9270